=== PATIENT | male | born 1945 | race Asian ===

== ENCOUNTER 2019-06-10 14:26 | Emergency (ER) | payer OTHER ==
[~2019-06-10] VITALS: Ht 165.1 cm; Wt 59.0 kg
[2019-06-10 14:46] VITALS: Ht 165.1 cm; Wt 59.0 kg
[2019-06-10 17:06] VITALS: BP 152/71
== END 2019-06-10 17:06 | disposition home or self-care (01) ==
LOC: ED 14:26
DX: S01.81XA Laceration without foreign body of other part of head, initial encounter (principal); I10 Essential (primary) hypertension; E11.9 Type 2 diabetes mellitus without complications; W08.XXXA Fall from other furniture, initial encounter; Y93.89 Activity, other specified; Y92.89 Other specified places as the place of occurrence of the external cause; Y99.8 Other external cause status
CPT/HCPCS: 90715; J2001

== ENCOUNTER 2019-06-16 15:16 | Emergency (ER) | payer OTHER ==
[~2019-06-16] VITALS: Ht 165.1 cm; Wt 59.0 kg
[2019-06-16 15:30] VITALS: BP 121/69; Ht 165.1 cm; Wt 59.0 kg
[2019-06-18] MEDS ORDERED: NAMENDA XR28 MG PO (13:44)
[2019-06-18] MEDS ORDERED: AMARYL4 MG PO (13:44)
[2019-06-18] MEDS ORDERED: PLAVIX75 M1 PO (13:45)
[2019-06-18] MEDS ORDERED: RISACAL-D1 TAB PO (13:45)
[2019-06-18] MEDS ORDERED: TRADJENTA5 M1 PO (13:45)
[2019-06-18] MEDS ORDERED: COZAAR50 M1 PO (13:46)
[2019-06-18] MEDS ORDERED: DULCOLAX5 M1 PO (13:46)
[2019-06-18] MEDS ORDERED: ATORVASTATIN CA10 M1 PO (13:46)
[2019-06-18] MEDS ORDERED: MORGIDOX 1X100100 MG PO (13:47)
[2019-06-18] MEDS ORDERED: MEMANTINE HCL E28 MG PO (13:48)
[2019-06-18] MEDS ORDERED: [UNRECOGNIZED DRUG - OTHER] PO (13:49)
[2019-06-18] MEDS ORDERED: RIVASTIGMINE T4.5 MG PO (13:50)
[2019-06-18] MEDS ORDERED: VASCEPA1 GM PO (13:50)
[2019-06-18] MEDS ORDERED: PROVIGIL100 MG PO (13:50)
[2019-06-18] MEDS ORDERED: METFORMIN500 M1 PO (17:11)
== END 2019-06-16 17:40 | disposition home or self-care (01) ==
LOC: ED 15:16
DX: S01.81XD Laceration without foreign body of other part of head, subsequent encounter (principal); I10 Essential (primary) hypertension; E11.9 Type 2 diabetes mellitus without complications; X58.XXXD Exposure to other specified factors, subsequent encounter
CPT/HCPCS: Q0092